=== PATIENT | male | born 1990 ===

== ENCOUNTER 2018-01-03 19:50 | Emergency (ER) | payer MEDICAID ==
[2018-01-03] MEDS ORDERED: Piperacillin/Tazobact 3.375 GM in Sodium Chloride 0.9% 100 ML IVPB STA (20:47)
[2018-01-03] MEDS ORDERED: Tdap Vaccine 0.5 ml Vial (10-64 yrs) IM ONE ×2 (20:48→20:57)
[2018-01-03] MEDS ORDERED: Piperacillin/Tazobact 3.375 gm Inj IVPB ONE (20:57)
[2018-01-03] MEDS ORDERED: Vancomycin 1 g Inj ONE (20:58)
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
[2018-01-03 21:26] LABS: BASO % 0.7 % (0.0-2.0); EOS # 0.2 K/uL (0.0-0.7); EOS % 2.7 % (0.0-4.0); LYMPH % 29.9 % (20.0-40.0); MEAN CELL VOLUME 82.2 fl (80.0-94.0); MEAN CORPUSCULAR HEMOGLOBIN 27.5 pg (27.0-31.0); MEAN CORPUSCULAR HGB CONC 33.4 g/dL (33.0-37.0); MEAN PLATELET VOLUME 8.7 fl (7.2-11.7); MONO # 0.7 K/uL (0.0-0.8); MONO % 10.4 % (0.0-10.0); NEUT # 3.7 K/uL (1.8-7.0); NEUT % 56.3 % (50.0-75.0); NRBC % 0.1 % (0.0-0.0); RBC 5.08 Mil/uL (4.40-5.90); RED CELL DISTRIBUTION WIDTH 14.1 % (11.5-14.5); WHITE BLOOD COUNT 6.7 K/uL (4.8-10.8)
[2018-01-03 21:36] LABS: ALB/GLOB RATIO 1.5 (1.0-2.1); ALBUMIN 4.7 g/dL (3.5-5.0); ALT/SGPT 31 U/L (21-72); AST/SGOT 31 U/L (17-59); BLOOD UREA NITROGEN 11 mg/dl (9-20); CALCIUM 9.3 mg/dL (8.4-10.2); GFR AFRICAN-AMERICAN > 60; GFR NON-AFRICAN AMERICAN > 60
[2018-01-04 00:15] VITALS: BP 122/65; PULSE 73; RESP 18; TEMP 98; O2SAT 100
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
== END 2018-01-04 00:22 | disposition home or self-care (01) ==
LOC: H.ER 19:50
DX: L03.113 Cellulitis of right upper limb (principal); Z86.59 Personal history of other mental and behavioral disorders; Y04.2XXA Assault by strike against or bumped into by another person, initial encounter; Z23 Encounter for immunization
CPT/HCPCS: 29125; 73130; 80053; 85025; 87040; 90471; 90715; 96365; 96366; 96367; 99283; J2543